=== PATIENT | male | born 1955 | race Two or more races ===

== ENCOUNTER 2020-10-03 06:51 | Day surgery (SDC) | payer OTHER ==
[~2020-10-03 06:51] MED LIST: ATACAND32 MG PO; FINASTERIDE PO; SYNTHROID100 MCG PO; TAMS0.4C PO; VIAGRA100 MG PO; VITAMIN D3 PO; ZOLOFT100 MG PO
== END 2020-10-03 13:25 | disposition home or self-care (01) ==
LOC: CIR.AMB 06:51
PROVIDERS: ATTEND Orthopaedic Surgery
DX: M75.121 Complete rotator cuff tear or rupture of right shoulder, not specified as traumatic (principal); M75.21 Bicipital tendinitis, right shoulder; Z53.09 Procedure and treatment not carried out because of other contraindication; R00.8 Other abnormalities of heart beat

== ENCOUNTER 2020-10-31 12:37 | Day surgery (SDC) | payer OTHER | END 2020-10-31 20:02 | disposition home or self-care (01) | LOC: CIR.AMB 12:37 | PROVIDERS: ATTEND Orthopaedic Surgery | DX: M75.121 Complete rotator cuff tear or rupture of right shoulder, not specified as traumatic (principal); M75.21 Bicipital tendinitis, right shoulder; Z20.822 Contact with and (suspected) exposure to COVID-19 ==

== ENCOUNTER 2022-03-31 06:31 | Day surgery (SDC) | payer OTHER ==
[~2022-03-31 06:31] MED LIST changes: +ESTAZOLAM1 MG PO; +FENOFIBRATE150 MG PO; +SAW PALMETTO500 MG PO; +SYNTHROID88 MCG PO; +WELLBUTRIN SR150 MG PO; +ZINC50 M1 PO
== END 2022-03-31 16:55 | disposition home or self-care (01) ==
LOC: CIR.AMB 06:31
PROVIDERS: ATTEND Orthopaedic Surgery Hand Surgery
DX: G56.01 Carpal tunnel syndrome, right upper limb (principal); Z20.822 Contact with and (suspected) exposure to COVID-19; Z91.018 Allergy to other foods; I10 Essential (primary) hypertension; E78.5 Hyperlipidemia, unspecified; E03.9 Hypothyroidism, unspecified; J45.909 Unspecified asthma, uncomplicated